=== PATIENT | female | born 1975 | race Caucasian/White ===

== ENCOUNTER 2016-09-24 11:12 | Observation (INO) | payer OTHER ==
[~2016-09-24] VITALS: Ht 167.6 cm; Wt 93.0 kg
[~2016-09-24 11:12] MED LIST: FLUO40CA9 PO; HYDR-3240 PO; TRAZ100T15 PO
[2016-09-24] MEDS ORDERED: HYDROmorphone 1 MG/ML, 1ML ONE ×4 (11:48→14:09)
[2016-09-24] MEDS ORDERED: ONDANSETRON 2MG/ML, 2ML ONE ×2 (11:49→18:00)
[2016-09-24] MEDS: HYDROmorphone 1 MG/ML, 1ML IVPush PRN ×4 (11:52→14:15)
[2016-09-24] MEDS ORDERED: SODIUM CHLORIDE FLUSH 10ML SYR IVF ONE (12:00)
[2016-09-24] MEDS ORDERED: SODIUM CHLORIDE 0.9% 1,000ML IV ONE (12:00)
[2016-09-24] MEDS ORDERED: ONDANSETRON 2MG/ML, 2ML IVPush ONE (12:00)
[2016-09-24] MEDS ORDERED: ENAL5TAB PO (12:17)
[2016-09-24 12:18] LABS: BLOOD UREA NITROGEN 12 mg/dL (7-18)
[2016-09-24 15:06] VITALS: BP 115/70
[2016-09-24] MEDS ORDERED: BUPIVACAINE/PF 0.25% ONE (16:51)
[2016-09-24] MEDS ORDERED: FLUORESCEIN SODIUM 500 MG/5 ML ONE (16:52)
[2016-09-24] MEDS ORDERED: FENTANYL PF 250 MCG/5ML ONE (16:58)
[2016-09-24] MEDS ORDERED: MIDAZOLAM 1 MG/ML, 2ML ONE (16:58)
[2016-09-24] MEDS ORDERED: morphine SULFATE 10 MG/ML, 1ML IVPush PRN ×2 (17:00→19:30)
[2016-09-24] MEDS ORDERED: FAMOTIDINE 20 MG/2 ML ONE (17:07)
[2016-09-24] MEDS ORDERED: LIDOCAINE 2% 100MG/5ML SYRINGE ONE (18:00)
[2016-09-24] MEDS ORDERED: GLYCOPYRROLATE 0.2MG/1ML ONE (18:00)
[2016-09-24] MEDS ORDERED: CEFAZOLIN 1,000 MG ONE (18:00)
[2016-09-24] MEDS ORDERED: SUCCINYLCHOLINE 20 MG/ML, 10ML ONE (18:00)
[2016-09-24] MEDS ORDERED: ROCURONIUM 10 MG/ML ONE (18:00)
[2016-09-24] MEDS ORDERED: PROPOFOL 10 MG/ML, 20ML ONE (18:00)
[2016-09-24] MEDS ORDERED: NEOSTIGMINE 1 MG/ML, 10ML ONE (18:00)
[2016-09-24] MEDS ORDERED: DEXAMETHASONE 4 MG/ML, 1ML ONE (18:00)
[2016-09-24] MEDS ORDERED: KETOROLAC 30 MG/1 ML ONE (18:00)
[2016-09-24] MEDS ORDERED: METOCLOPRAMIDE 5 MG/ML, 2ML IV PRN (19:00)
[2016-09-24] MEDS ORDERED: MEPERIDINE/PF 25MG/0.5ML IVPush PRN (19:00)
[2016-09-24] MEDS ORDERED: ACETAMINOPHEN 325 MG TABLET PO PRN (19:00)
[2016-09-24] MEDS ORDERED: HYDROmorphone 1 MG/ML, 1ML IV PRN (19:00)
[2016-09-24] MEDS ORDERED: OXYcodone 5 MG/5 ML ORAL.SOL UDC PO PRN ×2 (19:00→19:30)
[2016-09-24] MEDS ORDERED: KETOROLAC 30 MG/1 ML IVPush PRN (19:30)
[2016-09-24] MEDS ORDERED: ONDANSETRON 2MG/ML, 2ML IVPush PRN (19:30)
[2016-09-24] MEDS ORDERED: ACETAMINOPHEN 325 MG TABLET ONE (19:32)
[2016-09-24] MEDS ORDERED: ACETAMINOPHEN 650 MG/20.3 ML UDC ONE (19:32)
[2016-09-24] MEDS ORDERED: OXYcodone 5 MG/5 ML ORAL.SOL UDC ONE (19:32)
[2016-09-24] MEDS ORDERED: FENTANYL PF 100 MCG/2ML ONE (19:58)
[2016-09-24] MEDS: FENTANYL PF 100 MCG/2ML IV PRN ×2 (20:00→20:07)
[2016-09-24 20:26] VITALS: BP 106/67
[2016-09-24] MEDS: LACTATED RINGERS 1,000 ML IV SCH (20:56)
[2016-09-24] MEDS: DOCUSATE 100 MG CAPSULE PO SCH (21:03)
[2016-09-24 23:28] VITALS: BP 93/53
[2016-09-25 01:12] VITALS: BP 96/59
[2016-09-25] MEDS: LACTATED RINGERS 1,000 ML IV SCH ×2 (03:03→10:02)
[2016-09-25 04:03] VITALS: BP 96/60
[2016-09-25 06:57] VITALS: BP 102/61
[2016-09-25] MEDS: DOCUSATE 100 MG CAPSULE PO SCH (08:00)
[2016-09-25] MEDS ORDERED: IBUP200T48 PO (08:15)
[2016-09-25] MEDS ORDERED: OXYC-302 PO (08:15)
== END 2016-09-25 11:25 | disposition home or self-care (01) ==
LOC: ED 12:37 → 4NOR 14:21 → INTOOBSV 14:21 → 4NOR 14:49
PROVIDERS: ADMIT Obstetrics & Gynecology Gynecology; ATTEND Obstetrics & Gynecology Gynecology
DX: N83.201 Unspecified ovarian cyst, right side (principal); N83.519 Torsion of ovary and ovarian pedicle, unspecified side; N20.0 Calculus of kidney; F32.9 Major depressive disorder, single episode, unspecified; I10 Essential (primary) hypertension; Z80.49 Family history of malignant neoplasm of other genital organs; Z90.710 Acquired absence of both cervix and uterus; Z82.49 Family history of ischemic heart disease and other diseases of the circulatory system
CPT/HCPCS: 36415; 58661; 74176; 80048; 81001; 82040; 84703; 85025; 87086; 88305; 96374; 96375; 96376; 99285; G0378; J0330; J0690; J1100; J1170; J1885; J2250; J2405; J2704; J2710; J3010; J3490; J7030; S0028

== ENCOUNTER 2017-03-14 03:05 | Emergency (ER) | payer OTHER ==
[~2017-03-14] VITALS: Ht 167.6 cm; Wt 90.0 kg
[~2017-03-14 03:05] MED LIST changes: +ENAL5TAB PO; +IBUP200T48 PO; +OXYC-302 PO
[2017-03-14] MEDS ORDERED: SODIUM CHLORIDE 0.9% 1,000ML IVBOLUS ONE (03:30)
[2017-03-14] MEDS ORDERED: SODIUM CHLORIDE FLUSH 10ML SYR IVF ONE (03:30)
[2017-03-14] MEDS ORDERED: ONDANSETRON 2MG/ML, 2ML ONE (03:37)
[2017-03-14] MEDS ORDERED: HYDROmorphone 1 MG/ML, 1ML ONE (03:37)
[2017-03-14 03:40] LABS: HEMATOCRIT 40.7 % (34.6-47.8); HEMOGLOBIN 13.6 g/dL (11.7-16.4); WHITE BLOOD COUNT 9.5 x10^3/uL (3.4-10)
[2017-03-14 03:56] LABS: BLOOD UREA NITROGEN 16 mg/dL (7-18)
[2017-03-14 04:00] LABS: ASPARTATE AMINO TRANSFERASE 12 U/L (15-37)
[2017-03-14] MEDS ORDERED: ONDANSETRON 2MG/ML, 2ML IVPush ONE (04:00)
[2017-03-14] MEDS ORDERED: HYDROmorphone 1 MG/ML, 1ML IVPush PRN (04:00)
[2017-03-14] MEDS ORDERED: KETOROLAC 60 MG/2 ML IVPush ONE (04:30)
[2017-03-14] MEDS ORDERED: KETOROLAC 30 MG/1 ML ONE (04:57)
[2017-03-14 06:04] VITALS: BP 128/72
[2017-03-15] MEDS ORDERED: ATOR20TA9 PO (14:02)
[2017-03-15] MEDS ORDERED: ATOR40TA78 PO (14:02)
== END 2017-03-14 06:07 | disposition home or self-care (01) ==
LOC: ED 05:55
DX: N20.1 Calculus of ureter (principal); N20.2 Calculus of kidney with calculus of ureter; I10 Essential (primary) hypertension; E78.5 Hyperlipidemia, unspecified; Z90.710 Acquired absence of both cervix and uterus
CPT/HCPCS: 36415; 74176; 80053; 81001; 85025; 87086; 96374; 96375; 99285; J1170; J1885; J2405; J7030

== ENCOUNTER 2017-03-15 11:51 | Observation (INO) | payer OTHER ==
[~2017-03-15] VITALS: Ht 167.6 cm; Wt 91.0 kg
[2017-03-15] MEDS ORDERED: SODIUM CHLORIDE 0.9% 1,000 ML IV ONE ×2 (12:13→13:47)
[2017-03-15] MEDS ORDERED: MORPHINE SULFATE 4 MG/ML, 1ML ONE (12:21)
[2017-03-15] MEDS ORDERED: ONDANSETRON 2MG/ML, 2ML ONE ×3 (12:21→15:35)
[2017-03-15] MEDS ORDERED: MORPHINE SULFATE 4 MG/ML, 1ML IVPush PRN ×2 (12:30→14:00)
[2017-03-15] MEDS ORDERED: SODIUM CHLORIDE FLUSH 10ML SYR IVF ONE (12:30)
[2017-03-15] MEDS ORDERED: SODIUM CHLORIDE 0.9% 1,000ML IVBOLUS ONE (12:30)
[2017-03-15] MEDS ORDERED: ONDANSETRON 2MG/ML, 2ML IVPush ONE (12:30)
[2017-03-15 12:42] LABS: BLOOD UREA NITROGEN 14 mg/dL (7-18)
[2017-03-15 12:47] LABS: HEMATOCRIT 39.1 % (34.6-47.8); HEMOGLOBIN 13.2 g/dL (11.7-16.4); WHITE BLOOD COUNT 15.4 x10^3/uL (3.4-10)
[2017-03-15] MEDS ORDERED: CEFTRIAXONE PMX 1GM/50ML 50 ML ONE (13:51)
[2017-03-15] MEDS ORDERED: CEFTRIAXONE PMX 1GM/50ML 50 ML IV ONE (14:00)
[2017-03-15] MEDS ORDERED: ONDANSETRON 2MG/ML, 2ML IVPush PRN ×2 (14:00→16:30)
[2017-03-15] MEDS ORDERED: SODIUM CHLORIDE FLUSH 10ML SYR IVF PRN (14:00)
[2017-03-15] MEDS ORDERED: ATOR20TA9 PO (14:02)
[2017-03-15] MEDS ORDERED: ATOR40TA78 PO (14:02)
[2017-03-15 14:43] VITALS: BP 103/67
[2017-03-15] MEDS ORDERED: MIDAZOLAM 1 MG/ML, 2ML ONE (15:33)
[2017-03-15] MEDS ORDERED: FENTANYL PF 100 MCG/2ML ONE ×2 (15:33)
[2017-03-15] MEDS ORDERED: PROPOFOL 10 MG/ML, 20ML ONE (15:35)
[2017-03-15] MEDS ORDERED: DEXAMETHASONE 4 MG/ML, 1ML ONE ×2 (15:35)
[2017-03-15] MEDS ORDERED: SUCCINYLCHOLINE 20 MG/ML, 10ML ONE (15:35)
[2017-03-15] MEDS ORDERED: ROCURONIUM 10MG/ML,5ML ONE (15:35)
[2017-03-15] MEDS ORDERED: LABETALOL 5MG/ML, 20ML IV PRN (16:30)
[2017-03-15] MEDS ORDERED: FENTANYL PF 100 MCG/2ML IV PRN (16:30)
[2017-03-15] MEDS ORDERED: ALBUTEROL SULFATE 2.5 MG/3 ML NPPB PRN (16:30)
[2017-03-15] MEDS ORDERED: OXYcodone 5 MG/5 ML ORAL.SOL UDC PO PRN (16:30)
[2017-03-15] MEDS ORDERED: MIDAZOLAM 1 MG/ML, 2ML IV PRN (16:30)
[2017-03-15] MEDS ORDERED: HYDROmorphone 1 MG/ML, 1ML IV PRN (16:30)
[2017-03-15] MEDS ORDERED: PROMETHAZINE 25 MG/ML, 1ML IV PRN (16:30)
[2017-03-15] MEDS ORDERED: hydrALAzine 20 MG/ML, 1ML IV PRN (16:30)
[2017-03-15] MEDS ORDERED: ACETAMINOPHEN 325 MG TABLET PO PRN (16:30)
[2017-03-15] MEDS ORDERED: MEPERIDINE/PF 25MG/0.5ML IVPush PRN (16:30)
[2017-03-15] MEDS ORDERED: OMNIPAQUE 350 MG/ML, 50 ML BOTTLE IV ONE (16:51)
[2017-03-15] MEDS ORDERED: D5%-0.45NACL+KCL 20MEQ 1,000 ML IV SCH (16:53)
[2017-03-15] MEDS ORDERED: KETOROLAC 30 MG/1 ML IM PRN (17:00)
[2017-03-15] MEDS ORDERED: OPIUM/BELLADONNA SUPP.RECT 16.2-60 MG PR PRN (17:00)
[2017-03-15] MEDS ORDERED: OMNIPAQUE 350 MG/ML, 50 ML BOTTLE ONE (17:16)
[2017-03-15 20:13] VITALS: BP 102/62
[2017-03-16] MEDS ORDERED: IBUPROFEN 600 MG TABLET PO PRN (00:30)
[2017-03-16] MEDS ORDERED: OXYcodone IR 5MG TABLET PO PRN (00:30)
[2017-03-16 00:50] VITALS: BP 106/65
[2017-03-16 07:37] VITALS: BP 109/71
[2017-03-16] MEDS ORDERED: ENALAPRIL 5MG TABLET PO SCH (09:00)
[2017-03-16] MEDS ORDERED: FLUOXETINE 20 MG CAPSULE PO SCH (09:00)
[2017-03-16] MEDS ORDERED: CIPR500T87 PO (11:23)
[2017-03-16] MEDS ORDERED: KETO10TA PO (11:23)
[2017-03-16] MEDS ORDERED: OXYB5TAB7 PO (11:24)
[2017-03-16] MEDS ORDERED: PHEN-418 PO (11:26)
== END 2017-03-16 11:35 | disposition home or self-care (01) ==
LOC: ED 13:41 → 4NOR 13:47 → DCLOUNGE 03-16 11:20
PROVIDERS: ADMIT Urology; ATTEND Urology
DX: N20.1 Calculus of ureter (principal); R11.2 Nausea with vomiting, unspecified; I10 Essential (primary) hypertension; F32.9 Major depressive disorder, single episode, unspecified; E78.5 Hyperlipidemia, unspecified; E66.9 Obesity, unspecified; Z68.33 Body mass index [BMI] 33.0-33.9, adult; Z87.440 Personal history of urinary (tract) infections
CPT/HCPCS: 36415; 52332; 74000; 74420; 80048; 81001; 82040; 85025; 96365; 96375; 99285; C2617; G0378; J0330; J0696; J1100; J2250; J2405; J2704; J3010; J3480; J7030; Q9967

== ENCOUNTER 2017-04-29 10:08 | Emergency (ER) | payer OTHER ==
[~2017-04-29] VITALS: Ht 167.6 cm; Wt 89.6 kg
[~2017-04-29 10:08] MED LIST changes: +ATOR20TA9 PO; +ATOR40TA78 PO; +CIPR500T87 PO; +KETO10TA PO; +OXYB5TAB7 PO; +PHEN-418 PO
[2017-04-29] MEDS ORDERED: OXYcodone/APAP 5/325MG TABLET ONE (10:56)
[2017-04-29] MEDS ORDERED: OXYcodone/APAP 5/325MG TABLET PO ONE (11:00)
[2017-04-29] MEDS ORDERED: LIDOCAINE 1%, 20ML ONE (11:36)
[2017-04-29] MEDS ORDERED: LIDOCAINE 1%, 20ML SQ ONE (12:00)
[2017-04-29 12:09] VITALS: BP 95/69
== END 2017-04-29 12:14 | disposition home or self-care (01) ==
LOC: ED 11:23
DX: L73.2 Hidradenitis suppurativa (principal); E78.5 Hyperlipidemia, unspecified; I10 Essential (primary) hypertension
CPT/HCPCS: 10060; 99284

== ENCOUNTER 2020-03-06 05:48 | Day surgery (SDC) | payer OTHER ==
[~2020-03-06] VITALS: Ht 170.2 cm; Wt 91.0 kg
[~2020-03-06 05:48] MED LIST changes: +ATOR20TA37 PO; -ATOR20TA9 PO; -ENAL5TAB PO; +ENAL5TAB10 PO; -IBUP200T48 PO; +IBUP200T49 PO; +OXYB5TAB10 PO; -OXYB5TAB7 PO; +TRAZ-175 PO; -TRAZ100T15 PO; +UBRO100T PO
[2020-03-06] MEDS ORDERED: LACTATED RINGERS 1,000 ML IV SCH (06:33)
[2020-03-06] MEDS ORDERED: CHLORHEXIDINE 15 ML UDC MM STA (06:34)
[2020-03-06 06:40] VITALS: BP 130/84
[2020-03-06] MEDS ORDERED: LIDOCAINE/PF 1%-EPI 1:200K, 30 ML ONE (06:42)
[2020-03-06] MEDS ORDERED: FLUORESCEIN SODIUM 500 MG/5 ML ONE (06:43)
[2020-03-06] MEDS ORDERED: INDIGO CARMINE 0.8%, 5ML ONE (06:43)
[2020-03-06] MEDS ORDERED: METHYLENE BLUE 50 MG/10 ML AMP ONE (06:43)
[2020-03-06] MEDS ORDERED: BUPIVACAINE/PF 0.25% ONE (06:43)
[2020-03-06] MEDS ORDERED: FENTANYL PF 250 MCG/5ML ONE (07:27)
[2020-03-06] MEDS ORDERED: MIDAZOLAM 1 MG/ML, 2ML ONE (07:27)
[2020-03-06] MEDS ORDERED: MEPERIDINE/PF 25MG/0.5ML IVPush PRN (07:30)
[2020-03-06] MEDS ORDERED: DIAZEPAM 5 MG TABLET PO ONE (07:30)
[2020-03-06] MEDS ORDERED: ACETAMINOPHEN 500 MG TABLET PO ONE (07:30)
[2020-03-06] MEDS ORDERED: SUCCINYLCHOLINE 20 MG/ML, 10ML ONE (07:30)
[2020-03-06] MEDS ORDERED: PROPOFOL 10 MG/ML, 20ML ONE (07:30)
[2020-03-06] MEDS ORDERED: METHOCARBAMOL 1,000 MG in DEXTROSE 5% 100 ML IV PRN (07:30)
[2020-03-06] MEDS ORDERED: CEFAZOLIN 1,000 MG ONE (07:30)
[2020-03-06] MEDS ORDERED: ONDANSETRON 2MG/ML, 2ML IVPush PRN (07:30)
[2020-03-06] MEDS ORDERED: SCOPOLAMINE 1MG PATCH TD SCH (07:30)
[2020-03-06] MEDS ORDERED: HYDROmorphone 1 MG/ML, 1ML INJ IVPush PRN (07:30)
[2020-03-06] MEDS ORDERED: PROMETHAZINE 25 MG/ML, 1ML IVPush PRN (07:30)
[2020-03-06] MEDS ORDERED: ONDANSETRON 2MG/ML, 2ML ONE (07:30)
[2020-03-06] MEDS ORDERED: GLYCOPYRROLATE 0.2MG/1ML, 5ML ONE (07:30)
[2020-03-06] MEDS ORDERED: NEOSTIGMINE 1 MG/ML, 10ML ONE (07:30)
[2020-03-06] MEDS ORDERED: DEXAMETHASONE 4 MG/ML, 1ML ONE (07:30)
[2020-03-06] MEDS ORDERED: PROMETHAZINE 25 MG SUPP PR PRN (07:30)
[2020-03-06] MEDS ORDERED: ROCURONIUM 10MG/ML,5ML ONE (07:34)
[2020-03-06] MEDS ORDERED: VANCOMYCIN 1,000 MG ONE (08:51)
[2020-03-06] MEDS ORDERED: GENTAMICIN 80 MG/2 ML ONE (08:51)
[2020-03-06] MEDS ORDERED: MANNITOL PMX 20% 500 ML ONE (08:58)
[2020-03-06] MEDS: FENTANYL PF 100 MCG/2ML IV PRN ×2 (10:10→10:18)
[2020-03-06] MEDS ORDERED: OXYcodone 5 MG/5 ML ORAL.SOL UDC ONE (10:11)
[2020-03-06] MEDS ORDERED: KETOROLAC 30 MG/1 ML ONE (10:11)
[2020-03-06] MEDS ORDERED: FENTANYL PF 100 MCG/2ML ONE (10:12)
[2020-03-06] MEDS: OXYcodone 5 MG/5 ML ORAL.SOL UDC PO PRN ×2 (10:12→13:58)
== END 2020-03-06 14:25 | disposition home or self-care (01) ==
LOC: OUT 05:48
PROVIDERS: ATTEND Obstetrics & Gynecology Gynecology
DX: N81.10 Cystocele, unspecified (principal); Z20.828 Contact with and (suspected) exposure to other viral communicable diseases; N81.6 Rectocele; N94.12 Deep dyspareunia; N83.02 Follicular cyst of left ovary; N80.8 Other endometriosis; R32 Unspecified urinary incontinence; N73.6 Female pelvic peritoneal adhesions (postinfective); G43.909 Migraine, unspecified, not intractable, without status migrainosus; Z79.899 Other long term (current) drug therapy; Z90.710 Acquired absence of both cervix and uterus; Z90.721 Acquired absence of ovaries, unilateral; Z90.79 Acquired absence of other genital organ(s); Z87.442 Personal history of urinary calculi; Z98.890 Other specified postprocedural states; Z82.49 Family history of ischemic heart disease and other diseases of the circulatory system; Z82.3 Family history of stroke; Z80.49 Family history of malignant neoplasm of other genital organs
CPT/HCPCS: 36415; 57260; 57288; 58661; 80053; 81001; 84702; 85025; 86850; 86900; 87086; 87635; 88305; C1771; J0330; J0690; J1100; J1580; J2250; J2405; J2704; J2710; J3010; J3370; J3490; J7120; Q9968

== ENCOUNTER 2020-03-29 07:22 | Emergency (ER) | payer OTHER ==
--- NOTE | 2020-03-29 07:53 | NUR ---
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
[2020-03-29 07:57] VITALS: BP 124/85
--- NOTE | 2020-03-29 07:58 | NUR ---
surgery for rectocele/ovary removal. now feels pressure. able to pee. 5/10 pain. md at bedside for eval. as
[2020-03-29 08:14] LABS: MICROSCOPIC AUTO
--- NOTE | 2020-03-29 08:30 | NUR ---
straight cathed for ua walked to lab. as
[2020-03-29 08:46] LABS: MICROSCOPIC AUTO
--- NOTE | 2020-03-29 09:25 | NUR ---
AWAITING MATERIAL EXPEDITOR CONSULT .
== END 2020-03-29 10:26 | disposition home or self-care (01) ==
LOC: ED 08:01
DX: R30.0 Dysuria (principal); G89.18 Other acute postprocedural pain; R10.2 Pelvic and perineal pain; I10 Essential (primary) hypertension; E78.5 Hyperlipidemia, unspecified; Z90.710 Acquired absence of both cervix and uterus
CPT/HCPCS: 51701; 81001; 87086; 87147; 99283; 99284; P9612